=== PATIENT | female | born 1950 | race Caucasian/White ===

== ENCOUNTER 2016-10-12 13:40 | Emergency (ER) | payer BC, MEDICARE ==
[2016-10-12 15:07] LABS: HEMOGLOBIN 14.1 gm/dl (12.3-15.3); RED BLOOD COUNT 4.88 M/UL (4.00-5.10)
[2016-10-12 16:35] LABS: BUN/CREATININE RATIO 12 (0-10)
== END 2016-10-12 18:08 | disposition short-term general hospital (02) ==
LOC: ER1 13:40
PROVIDERS: Student in an Organized Health Care Education/Training Program
DX: S06.300A Unspecified focal traumatic brain injury without loss of consciousness, initial encounter (principal); X58.XXXA Exposure to other specified factors, initial encounter; Y92.410 Unspecified street and highway as the place of occurrence of the external cause; Z88.5 Allergy status to narcotic agent; Z88.8 Allergy status to other drugs, medicaments and biological substances; Z79.899 Other long term (current) drug therapy
CPT/HCPCS: 36415; 70450; 80053; 85025; 85610; 85730; 87086; 96374; 99284; J2765; J7030